=== PATIENT | male | born 1960 | race African-American/Black ===

== ENCOUNTER 2021-02-06 13:49 | Emergency (ER) | payer BC ==
--- NOTE | 2021-02-06 14:15 | EDM.PDOC ---
ED HPI GENERAL MEDICAL PROBLEM - General Chief Complaint: Neuro Symptoms/Deficits Stated Complaint: [facility] Time Seen by Provider: 02/06/21 14:11 Source of Information: Reports: Patient History Limitations: Reports: No Limitations - History of Present Illness INITIAL COMMENTS - FREE TEXT/NARRATIVE: 60-year-old male of -[place] ancestry presents to the ED per [place] [facility]. Patient is traveling west. He resides in [facility]. He states somewhere between [place] and [facility] and he started to feel unwell. He states his vision seemed to go awry and he felt somewhat lightheaded and dizzy. He pulled into the [employer] gas station in [place] and then went in and asked for help and they called the ambulance for him. He states he could walk but he felt a little bit offkilter. He felt numbness and tingling in his hands feet and generalized sense of weakness. He did have a small emesis as well. He has not had much to eat or drink so far today. He has been driving most of the morning. He does not take much for medications. He believes he is on a blood pressure pill. His other complaint was sudden onset of a severe headache. Therefore the concern was for possible anterior cranial bleed. Stroke alert was therefore called in this patient. Onset: Today, Sudden Onset Date: 02/06/21 Onset Time: 13:10 Duration: Minutes:, Improving (Take is much improved.) Location: Reports: Head (Generalized headache both frontal cortices as well as the occipital), Upper Extremity, Left ( numbness and tingling), Upper Extremity, Right ( numbness and tingling), Lower Extremity, Left, Lower Extremity, Right (Is in tingling), Generalized ( numbness and tingling generalized sense of weakness), Other (Nausea.). Denies: Face ( skull.), Neck, Chest, Abdomen, Back, Pelvis Quality: Reports: Other (Neurolysed numbness and tingling I believe combined with hyperventilation syndrome.) Severity: Moderate Improves with: Reports: None Worsens with: Reports: Movement (I believe his symptoms worsened as he got out of the vehicle suggesting the vertigo as a component of his nausea and generalized weakness and headache.) Context: Reports: Other (Was driving his motor vehicle when he did developed blurred vision and burning in his eyes with a headache development. After he got out of the vehicle at the gas station he developed some nausea and felt worse in terms of movement like he was offkilter but he will not contribute to a true vertigo ). Denies: Activity ( Headache may have been set off by maxine jain.), Exercise, Lifting, Sick Contact, Trauma Associated Symptoms: Reports: Headaches, Loss of Appetite, Malaise, Nausea/Vomiting, Weakness. Denies: Diaphoresis, Fever/Chills, Rash (1 small emesis. 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 (see below) (Lateral my sense of weakness.) Headache Pain Score (Numeric/FACES): 10 - Related Data Allergies Allergy/AdvReac Type Severity Reaction Status Date / Time No Known Allergies Allergy Verified 02/06/21 14:05 Home Meds: Home Meds Losartan Potassium 100 mg PO DAILY 02/06/21 [History] hydroCHLOROthiazide [Hydrochlorothiazide] 25 mg PO DAILY 02/06/21 [History] Past Medical History Cardiovascular History: Reports: Hypertension Endocrine/Metabolic History: Reports: Obesity/BMI 30+ Social & Family History - Tobacco Use Tobacco Use Status *Q: Current Every Day Tobacco User Years of Tobacco use: 16 Packs/Tins Daily: 2 - Caffeine Use Caffeine Use: Reports: Coffee - Recreational Drug Use Recreational Drug Use: No - Living Situation & Occupation Living situation: Reports: Occupation: Employed ED ROS GENERAL - Review of Systems Review Of Systems: See Below Constitutional: Reports: Weakness, Fatigue, Decreased Appetite. Denies: Fever, Chills, Malaise, Weight Loss HEENT: Reports: Glasses (Just for reading.), Other (Feels his eyes are burning and uncomfortable.) Respiratory: Denies: Shortness of Breath, Wheezing, Pleuritic Chest Pain, Cough, Sputum, Hemoptysis, Other Cardiovascular: Reports: Blood Pressure Problem, Lightheadedness (Right head and dizzy). Denies: Chest Pain, Claudication, Dyspnea on Exertion, Edema ( upon getting out of the vehicle today.), Orthopnea (Sure what blood pressure medication he takes.), Palpitations Endocrine: Reports: Fatigue GI/Abdominal: Reports: Decreased Appetite, Nausea, Vomiting. Denies: Constipation (Small emesis after getting out of the vehicle at the gas station.), Diarrhea : Reports: No Symptoms, Discharge, Dysuria, Frequency (Usually up once or twice per night to void.) Musculoskeletal: Reports: Back Pain (Back pain issues.) Skin: Reports: No Symptoms Neurological: Reports: Dizziness (Interpreted as mild vertigo today.), Headache, Numbness, Paresthesia (Sense of weakness difficulty walking due to weakness.), Tingling, Difficulty Walking, Weakness. Denies: Confusion, Syncope (In all 4 limbs after getting out of the vehicle.), Tremors, Change in Speech, Gait Disturbance Psychiatric: Reports: Anxiety Hematologic/Lymphatic: Reports: No Symptoms Immunologic: Reports: No Symptoms ED EXAM, NEURO - Physical Exam Exam: See Below Exam Limited By: No Limitations General Appearance: Alert, WD/WN, Anxious, Moderate Distress, Other (Temperature is 36.6 degrees. Heart rate 75 and sinus respiratory 16 BP 145/86 pulse oximetry is 100% room air.) Eye Exam: Bilateral Eye: Conjunctival Injection (Mild bilaterally.), Normal Inspection (No scleral icterus or blepharal pallor.), Nystagmus (Mild nystagmus on left lateral gaze nonsustained however.), PERRL Ears: Normal TMs Throat/Mouth: Normal Inspection, Normal Lips, Normal Teeth, Normal Oropharynx Head Exam: Atraumatic, Normocephalic Neck: Normal Inspection, Supple, Non-Tender, Full Range of Motion. No: Carotid Bruit, Lymphadenopathy (L), Lymphadenopathy (R) Respiratory/Chest: No Respiratory Distress, Lungs Clear, Normal Breath Sounds, No Accessory Muscle Use Cardiovascular: Normal Peripheral Pulses, Regular Rate, Rhythm, No Edema, No Gallop, No JVD, No Murmur, No Rub GI/Abdominal: Normal Bowel Sounds, Soft, Non-Tender, No Organomegaly, No Distention, No Abnormal Bruit (Male) Exam: No Hernia Neurological: Alert, Normal Mood/Affect, Normal Dorsiflexion, CN II-XII Intact, Normal Plantar Flexion, Normal Gait, Normal Reflexes, No Motor/Sensory Deficits, Oriented x 3, Other (Normal [id number]. Normal vdpe-hn-[id number]. No decreased motor power and tone in any of his extremities when compared to each other. Normal rapid alternating movements. Negative Babinski sign negative Romberg sign). No: Ataxia, Abnormal Finger to Nose, Abnormal Sensation, Babinski DTR: 0: Achilles (R), Achilles (L), 1+: Bicep (R), Bicep (L), Patella (R), Patella (L) Back Exam: Normal Inspection, Full Range of Motion. No: CVA Tenderness (L), CVA Tenderness (R) Extremities: Normal Inspection, Normal Range of Motion, Non-Tender, No Pedal Edema Psychiatric: Anxious, Tearful Skin Exam: Warm, Dry, Intact, Normal Color, No Rash #1 Interpretation EKG Date: 02/06/21 Time: 14:00 Rhythm: NSR Rate (Beats/Min): 82 [place]: Normal P-Wave: Present QRS: Other (Early R wave transition V2 consider right ventricular hypertrophy versus septal hypertrophy pattern.) ST-T: Other (T wave flattening V4 to V6 and aVL nonspecific finding) QT: Prolonged (Mildly prolonged) EKG Interpretation Comments: Borderline ECG Course - Vital Signs Last Recorded V/S: Last Vital Signs Temp 36.6 C 02/06/21 13:58 Pulse 75 02/06/21 13:58 Resp 16 02/06/21 13:58 BP 145/86 H 02/06/21 13:58 Pulse Ox 100 02/06/21 13:58 - Orders/Labs/Meds Orders: Active Orders 24 hr Category Date Time Status EKG 12 Lead [EKG Documentation Completion] [RC] ROUTINE Care 02/06/21 14:00 Active Head wo Cont [CT] Stat Exams 02/06/21 17:20 Taken Sodium Chloride 0.9% [Normal Saline] 1,000 ml Med 02/06/21 14:30 Active IV ASDIRECTED Medication Orders Sodium Chloride (Normal Saline) 1,000 mls @ 125 mls/hr IV ASDIRECTED MEI Last Admin: 02/06/21 14:32 Dose: 125 mls/hr Documented by: JOE Labs: Laboratory Tests 02/06/21 02/06/21 02/06/21 Range/Units 14:07 14:07 14:07 WBC 7.51 (4.23-9.07) K/mm3 RBC 5.04 (4.63-6.08) M/mm3 Hgb 14.6 (13.7-17.5) gm/dl Hct 45.2 (40.1-51.0) % MCV 89.7 (79.0-92.2) fl MCH 29.0 (25.7-32.2) pg MCHC 32.3 (32.2-35.5) g/dl RDW Std Deviation 48.8 H (35.1-43.9) fL Plt Count 297 (163-337) K/mm3 MPV 11.2 (9.4-12.3) fl Neut % (Auto) 43.1 (34.0-67.9) % Lymph % (Auto) 45.9 (21.8-53.1) % [place] % (Auto) 8.3 (5.3-12.2) % Eos % (Auto) 1.9 (0.8-7.0) Baso % (Auto) 0.8 (0.1-1.2) % Neut # (Auto) 3.24 (1.78-5.38) K/mm3 Lymph # (Auto) 3.45 (1.32-3.57) K/mm3 [place] # (Auto) 0.62 (0.30-0.82) K/mm3 Eos # (Auto) 0.14 (0.04-0.54) K/mm3 Baso # (Auto) 0.06 (0.01-0.08) K/mm3 PT (9.7-12.0) SECONDS INR APTT (21.7-31.4) SECONDS Sodium 139 (136-145) mEq/L Potassium 3.7 (3.5-5.1) mEq/L Chloride 101 (98-107) mEq/L Carbon Dioxide 29 (21-32) mEq/L Anion Gap 12.7 (5-15) BUN 15 (7-18) mg/dL Creatinine 1.3 (0.7-1.3) mg/dL Est Cr Clr Drug Dosing 57.20 mL/min Estimated GFR (MDRD) 57 (>60) mL/min BUN/Creatinine Ratio 11.5 L (14-18) Glucose 104 (74-106) mg/dL POC Glucose 97 (70-99) mg/dL Calcium 9.6 (8.5-10.1) mg/dL Magnesium 2.0 (1.8-2.4) mg/dl Total Bilirubin 0.5 (0.2-1.0) mg/dL AST 18 (15-37) U/L ALT 27 (16-63) U/L Alkaline Phosphatase 108 (46-116) U/L CK-MB (CK-2) 1.0 (0-3.6) ng/ml Troponin I < 0.017 (0.00-0.056) ng/mL C-Reactive Protein 2.0 H* (<1.0) mg/dL NT-Pro-B Natriuret Pep (0-125) pg/mL Total Protein 7.4 (6.4-8.2) g/dl Albumin 3.5 (3.4-5.0) g/dl Globulin 3.9 gm/dL Albumin/Globulin Ratio 0.9 L (1-2) Urine Color (Yellow) Urine Appearance (Clear) Urine pH (5.0-8.0) Ur Specific [place] (1.005-1.030) Urine Protein (Negative) Urine Glucose (UA) (Negative) Urine Ketones (Negative) Urine Occult Blood (Negative) Urine Nitrite (Negative) Urine Bilirubin (Negative) Urine Urobilinogen (0.2-1.0) Ur Leukocyte Esterase (Negative) Urine RBC (0-5) /hpf Urine WBC (0-5) /hpf Ur Squamous Epith Cells (0-5) /hpf Urine Bacteria (FEW) /hpf Urine Mucus (FEW) /hpf 02/06/21 02/06/21 02/06/21 Range/Units 14:07 14:07 16:55 WBC (4.23-9.07) K/mm3 RBC (4.63-6.08) M/mm3 Hgb (13.7-17.5) gm/dl Hct (40.1-51.0) % MCV (79.0-92.2) fl MCH (25.7-32.2) pg MCHC (32.2-35.5) g/dl RDW Std Deviation (35.1-43.9) fL Plt Count (163-337) K/mm3 MPV (9.4-12.3) fl Neut % (Auto) (34.0-67.9) % Lymph % (Auto) (21.8-53.1) % [place] % (Auto) (5.3-12.2) % Eos % (Auto) (0.8-7.0) Baso % (Auto) (0.1-1.2) % Neut # (Auto) (1.78-5.38) K/mm3 Lymph # (Auto) (1.32-3.57) K/mm3 [place] # (Auto) (0.30-0.82) K/mm3 Eos # (Auto) (0.04-0.54) K/mm3 Baso # (Auto) (0.01-0.08) K/mm3 PT 10.4 (9.7-12.0) SECONDS INR 0.97 APTT 26.8 (21.7-31.4) SECONDS Sodium (136-145) mEq/L Potassium (3.5-5.1) mEq/L Chloride (98-107) mEq/L Carbon Dioxide (21-32) mEq/L Anion Gap (5-15) BUN (7-18) mg/dL Creatinine (0.7-1.3) mg/dL Est Cr Clr Drug Dosing mL/min Estimated GFR (MDRD) (>60) mL/min BUN/Creatinine Ratio (14-18) Glucose (74-106) mg/dL POC Glucose (70-99) mg/dL Calcium (8.5-10.1) mg/dL Magnesium (1.8-2.4) mg/dl Total Bilirubin (0.2-1.0) mg/dL AST (15-37) U/L ALT (16-63) U/L Alkaline Phosphatase (46-116) U/L CK-MB (CK-2) (0-3.6) ng/ml Troponin I (0.00-0.056) ng/mL C-Reactive Protein (<1.0) mg/dL NT-Pro-B Natriuret Pep 10 (0-125) pg/mL Total Protein (6.4-8.2) g/dl Albumin (3.4-5.0) g/dl Globulin gm/dL Albumin/Globulin Ratio (1-2) Urine Color Yellow (Yellow) Urine Appearance Clear (Clear) Urine pH 7.0 (5.0-8.0) Ur Specific [place] 1.025 (1.005-1.030) Urine Protein Trace H (Negative) Urine Glucose (UA) Negative (Negative) Urine Ketones Negative (Negative) Urine Occult Blood Negative (Negative) Urine Nitrite Negative (Negative) Urine Bilirubin Negative (Negative) Urine Urobilinogen 2.0 H (0.2-1.0) Ur Leukocyte Esterase Negative (Negative) Urine RBC 0-5 (0-5) /hpf Urine WBC 0-5 (0-5) /hpf Ur Squamous Epith Cells 0-5 (0-5) /hpf Urine Bacteria Few (FEW) /hpf Urine Mucus Few (FEW) /hpf Meds: Medications Generic Name Dose Route Start Last Admin Trade Name Freq PRN Reason Stop Dose Admin Sodium Chloride 1,000 mls @ 125 mls/hr 02/06/21 14:30 02/06/21 14:32 Normal Saline IV 125 mls/hr ASDIRECTED MEI Administration Discontinued Medications Generic Name Dose Route Start Last Admin Trade Name Freq PRN Reason Stop Dose Admin Lorazepam 1 mg 02/06/21 14:24 02/06/21 14:32 Lorazepam 2 Mg/Ml Sdv IV 02/06/21 14:25 1 mg ONETIME ONE Administration Metoclopramide HCl 10 mg 02/06/21 14:23 02/06/21 14:32 Metoclopramide 10 Mg/2 Ml Sdv IVPUSH 02/06/21 14:24 10 mg ONETIME ONE Administration - Re-Assessments/Exams Free Text/Narrative Re-Assessment/Exam: 02/06/21 15:06 head has been completed. Was done without contrast. Ventricles along with the basal cisterns and sulci over the convexities are slightly prominent. Mild diminished density is noted within the periventricular white matter. Given the patient's age this is most likely due to small vessel ischemic demyelination changes. No other abnormal parenchymal densities are seen. No evidence of intracranial hemorrhage. No midline shift or mass-effect appreciated. Bone window settings were reviewed. Visualized mastoid sinuses are patent. Paranasal sinuses show small fluid level within the right sphenoid sinus and mild mucosal thickening within the ethmoid sinuses. No acute calvarial finding is otherwise appreciated. Chest x-ray done portably reveals heart size and mediastinum to be within normal limits. Lungs are clear with no acute parenchymal changes being seen. No acute osseous findings identified either. I did speak to the patient in regards to the above findings. He did get slightly dizzy or vertiginous while in the CT gantry. At present he is slipping off to sleep from the effects of the Reglan and Ativan to try and stabilize his balance mechanism. 02/06/21 15:11 White count is 7.51 with 43% neutrophils and 46% lymphocytes. Hemoglobin is 14.6 with hematocrit of 45.2 platelet count 297,000. PT is 10.4 with an INR of 0.97. PTT is 26.8. Sodium 139 with a potassium of 3.7 and a chloride of 101. Bicarb is 29 with an anion gap of 12.7. BUN is 15 with a creatinine of 1.3. Estimated GFR is 57. Glucose is 104 with a bedside glucose of 97. Calcium 9.6. Magnesium 2.0. Liver function is normal. CK-MB is 1.0 with a troponin I of less than 0.017. C-reactive protein is 2.0 BNP is 10 total protein 7.4 with an albumin fraction of 3.5 globulin is 3.9 02/06/21 17:43: Report that the patient awoke and had to void. They found it very difficult to walk him with 1 person assist and a second nurse was asked to help both. They find him to have a wide-based gait and be ataxic especially exhibiting some weakness perhaps of his right leg. He denies much of a headache anymore and feels better and in fact after having arrest. He has no further nausea. When I examined him he is exhibiting ataxia on [id number] assessment with the right hand and left hand is normal. He had some trouble performing rapid alternating movements of the right hand. No pronator drift. Upon walking him he walks with a wide-based gait and points his toes outward a little bit on the right side and indicates this is far from his normal gait. He will wobbled from side to side but not bad enough to fall. Concerned therefore is for a cerebellar infarct on the right side causing current symptom complex. Plan I am going to have him have a repeat CT scan of his head to make sure there is no intracranial intracerebellar hemorrhage. He is still within the window of treatment for TPA Free Text/Narrative Re-Assessment/Exam: 02/06/21 18:10: Repeat CT scan of his brain does not reveal any changes in comparison to CT scan done 3-1/2 hours earlier. There is a mild amount of scattered areas of hypoattenuation of the supratentorial white matter most likely secondary to microvascular ischemic change. No acute intracranial hemorrhage identified. I therefore spoke with --life management teacher on-call at [facility] in [place] and he agrees with proceeding with thrombolytic therapy with alteplase. Patient will receive the maximum dose of 90 mg as he is 127 kg. He will receive 9 mg IV bolus followed by 81 mg infusion over the next hour. The plan is to send him to [facility] in [place] by ground ambulance to the emergency department where he will have further neuro imaging by way of either CTA or MRI or MRA. I did speak with Dr. Crane emergency room physician whom has accepted care in the ED. Departure - Departure Time of Disposition: 18:50 Disposition: DC/Tfer to Acute Hospital 02 Condition: Fair Clinical Impression: Cerebral vascular accident - Discharge Information *PRESCRIPTION DRUG MONITORING PROGRAM REVIEWED*: Not Applicable *COPY OF PRESCRIPTION DRUG MONITORING REPORT IN PATIENT MAO: Not Applicable Referrals: PCP,Not In Area [Primary Care Provider] - Forms: ED Department Discharge Additional Instructions: Evaluation the emergency room today in regards to a stroke in evolution. 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 He felt that there was something wrong with his vision like it was swimming and distorted. He then developed a bad headache primarily in the occipital area of his head and did have a small emesis. He pulled into the [employer] [facility] [employer] station in [facility] and was able to asked them to call the ambulance. He was thus brought to our hospital per [place] [facility]. Stroke alert was called upon arrival and I did attend him promptly. Complete neurologic examination did not reveal any deficits. He had no sustained nystagmus. His rapid alternating movements and [id number] assessments were normal [id number] assessments were normal and his gait was normal. No motor power weakness was not identified in any of his extremities. He had a normal blood pressure. Normal blood sugar. Therefore routine labs were collected which were essentially normal other than slightly elevated CRP at 2.0. CT scan done at that time because of complaint of sudden onset of quite bad headache revealed no abnormalities other than mild inflammation in the paranasal sinuses with a small air-fluid level within the right sphenoid sinus and revealed mild mucosal thickening within the ethmoid sinus. Patient was felt to be suffering from a labyrinthitis/vertigo event. He was therefore given Reglan 10 mg IV and Ativan 1 mg IV and he promptly fell asleep for the next hour and 1/2 to 2 hours. Shortly after 1700 hrs. today he had to void and the nurses got him up to the bathroom. They found that he struggled to walk and seemed to have difficulty with his right leg being weak and ataxic. When they got back to bed I was able to reexamine him and he was indeed ataxic on finger-nose assessment on the right side and he was having trouble with some dysarthria. I had the nurses help me get him up to walk and indeed he would be at least a 1 person assist if not to nurse assist due to his size and walk with an based gait with his right foot turned outwards which he states was totally typical for him. He needed this to maintain his balance. Repeat NIH scores were ordered and they revealed a change was 3 when I assessed him. After discussing case with neurology services in [place] we got the alteplase or TPA ready for him. In that interim his condition deteriorated to the point that he was not able to read sentences and his NIH score went to a 7. After thrombolytic therapy within the first 15 minutes he now is an NIH score of 1 able to read clearly speech is now much more discernible and there is no further [id number] ataxia. He transferred to [place] per ground ambulance as soon as available. Sepsis Event Note (ED) - Evaluation Sepsis Screening Result: No Definite Risk - Focused Exam Vital Signs: Vital Signs Temp Pulse Resp BP Pulse Ox 02/06/21 13:58 36.6 C 75 16 145/86 H 100 - My Orders Last 24 Hours: My Active Orders 02/06/21 14:00 EKG 12 Lead [EKG Documentation Completion] [RC] ROUTINE 02/06/21 14:30 Sodium Chloride 0.9% [Normal Saline] 1,000 ml IV ASDIRECTED 02/06/21 17:20 Head wo Cont [CT] Stat - Assessment/Plan Last 24 Hours: My Active Orders 02/06/21 14:00 EKG 12 Lead [EKG Documentation Completion] [RC] ROUTINE 02/06/21 14:30 Sodium Chloride 0.9% [Normal Saline] 1,000 ml IV ASDIRECTED 02/06/21 17:20 Head wo Cont [CT] Stat
[2021-02-06] MEDS ORDERED: Metoclopramide 10 MG/2 ML SDV IVPUSH ONE (14:23)
[2021-02-06] MEDS ORDERED: LORazepam 2 MG/ML SDV IV ONE (14:24)
[2021-02-06] MEDS ORDERED: Sodium Chloride 0.9% 1,000 ML IV SCH (14:30)
--- NOTE | 2021-02-06 14:42 | CT ---
Head CT Technique: Multiple axial sections through the brain were obtained. Intravenous contrast was not utilized. Reconstructed coronal and sagittal images were obtained. Findings: Ventricles along with basal cisterns and sulci over the convexities are slightly prominent. Mild diminished density is noted within the periventricular white matter. Given the patient's age, this is most likely due to mild small vessel ischemic demyelination change. No other abnormal parenchymal densities are seen. No evidence of intracranial hemorrhage. No midline shift or mass-effect is appreciated. Bone window settings were reviewed. Visualized mastoid sinuses are patent. Paranasal sinuses show a small fluid level within the right sphenoid sinus and mild mucosal thickening within the ethmoid sinuses. No acute calvarial finding is appreciated. Impression: 1. Slight sinus findings. Small air-fluid level within the sphenoid sinus raises the possibility of mild acute sinusitis. Please correlate. 2. Mild senescent change as noted above. No acute intracranial abnormality is appreciated. Diagnostic code #3
--- NOTE | 2021-02-06 14:46 | CR ---
Chest: Portable view of the chest was obtained. Comparison: No previous chest imaging is available. Heart size and mediastinum are normal. Lungs are clear with no acute parenchymal change being seen. No acute osseous finding is seen. Impression: 1. Nothing acute is seen on portable chest x-ray. Diagnostic code #1
[2021-02-06] MEDS ORDERED: Alteplase 81 MG in Infusion 1 VIAL IV ONE (18:32)
--- NOTE | 2021-02-07 08:44 | CT ---
Head CT Technique: Multiple axial sections through the brain were obtained. Intravenous contrast was not utilized. Reconstructed coronal and sagittal images were obtained. Comparison: Prior head CT study of 02/06/21. Findings: Ventricles along with basal cisterns and sulci over convexities are slightly prominent. Diminished density is noted within the periventricular white matter which is most likely due to mild small vessel ischemic demyelination change. No other abnormal areas of parenchymal density are seen. No evidence of intracranial hemorrhage. No midline shift or mass-effect is seen. Bone window settings were reviewed. Mild mucosal thickening is seen within the ethmoid sinuses. Mastoid sinuses are clear. No acute calvarial finding is seen. Impression: 1. Senescent change as noted above which is stable. 2. Minimal findings within the ethmoid sinuses which are believed to be chronic. Previous air-fluid level within the sphenoid sinus has almost disappeared. 3. No acute intracranial abnormality is appreciated. Diagnostic code #2 I agree with preliminary report from [facility], finalized on 02/06/21, 7:23 PM CDT
== END 2021-02-06 19:15 ==
LOC: JD.ED 13:49
DX: I63.9 Cerebral infarction, unspecified (principal); I10 Essential (primary) hypertension; E66.9 Obesity, unspecified; Z68.30 Body mass index [BMI] 30.0-30.9, adult; Z72.0 Tobacco use; Z79.899 Other long term (current) drug therapy
CPT/HCPCS: 36415; 37195; 70450; 71045; 80053; 81001; 82553; 82947; 83735; 83880; 84484; 85025; 85610; 85730; 86140; 93005; 96374; 96375; 99285; J2060; J2765; J2997; J7030; 93010